=== PATIENT | male | born 1985 | race Caucasian/White ===

== ENCOUNTER 2017-03-09 19:09 | Emergency (ER) | payer OTHER ==
[~2017-03-09] VITALS: Ht 182.9 cm; Wt 158.8 kg
[2017-03-09 19:42] VITALS: BP 150/80
[2017-03-09] MEDS ORDERED: IBUPROFEN 600 MG TABLET PO ONE ×2 (19:58→20:00)
== END 2017-03-09 21:02 | disposition home or self-care (01) ==
LOC: ER 19:10
DX: R21 Rash and other nonspecific skin eruption (principal); F41.9 Anxiety disorder, unspecified; E03.9 Hypothyroidism, unspecified; Z90.89 Acquired absence of other organs
CPT/HCPCS: A4606; Z7610